=== PATIENT | male | born 1985 | race Caucasian/White ===

== ENCOUNTER 2023-09-15 00:34 | Observation (INO) | payer OTHER ==
--- NOTE | 2023-09-15 00:36 | ED ---
General Adult HPI - General Stated complaint: Sore throat Time Seen by Provider: 09/15/23 00:36 - History of Present Illness Initial comments: Collins is a 38-year-old male who presents to the emergency department today as a transfer from an outside facility. Patient reports he's had a sore throat for a few days he was seen in the emergency department yesterday morning and diagnosed with pharyngitis he was prescribed Augmentin and discharged home. He returned this evening with worsening pain and swelling, he was febrile tachycardic. Lab work showed he had leukocytosis and computed tomography scan of the neck showed a 2.2 cm hypodensity in the right tonsil concerning for abscess. Patient received a dose of Unasyn and Decadron at the outside hospital and transferred here for further evaluation. Of note there is also a lesion on the right tonsil concerning for reactive lymph node versus cancerous lesion given the patient's significant smoking history is recommended he have repeat imaging in 2-3 weeks. - Related Data Allergies Allergy/AdvReac Type Severity Reaction Status Date / Time No Known Allergies Allergy Verified 09/15/23 00:40 Review of Systems ROS Statement: Those systems with pertinent positive or pertinent negative responses have been documented in the HPI. ROS Other: All systems not noted in ROS Statement are negative. General Exam Limitations: no limitations General appearance: alert, other (Appears uncomfortable, m) Expanded Mouth exam: Present: trismus, muffled voice. Absent: drooling, tongue elevation Throat exam: R peritonsillar mass Respiratory exam: Absent: respiratory distress Cardiovascular Exam: Present: regular rate, normal rhythm GI/Abdominal exam: Absent: distended Neurological exam: Present: alert, oriented X3 Psychiatric exam: Present: normal affect, normal mood Skin exam: Present: warm, dry Course Vital Signs 09/15/23 09/15/23 09/15/23 00:36 02:10 03:00 Temperature 99.0 F Pulse Rate 97 88 90 Respiratory 20 16 15 Rate Blood Pressure 139/102 151/95 151/95 O2 Sat by Pulse 93 L 93 L 93 L Oximetry Procedures - Incision & Drainage Consent Obtained: verbal consent Site: oral (Peritonsillar abscess, right) Anesthetic Used: benzocaine 0.25% (Topical spray) Needle Aspiration Performed?: Yes Insertion of drain: No Culture Obtained?: No Patient Tolerated Procedure: well Medical Decision Making - Medical Decision Making Was pt. sent in by a medical professional or institution (, JORDI, INVESTIGATOR WELFARE, urgent care, hospital, or alf...) When possible be specific @ Yes - [facility] Did you speak to anyone other than the patient for history (EMS, parent, family, police, friend...)? What history was obtained from this source @ -Yes, transferring physician Did you review nursing and triage notes (agree or disagree)? Why? @ -I reviewed and agree with nursing and triage notes Were old charts reviewed (outside hosp., previous admission, EMS record, old EKG, old radiological studies, urgent care reports/EKG's, alf records)? Report findings @ -Tranfer packet reviewed Differential Diagnosis (chest pain, altered mental status, abdominal pain women, abdominal pain men, vaginal bleeding, weakness, fever, dyspnea, syncope, headache, dizziness, GI bleed, back pain, seizure, CVA, palpatations, mental health)? @ -not applicable EKG interpreted by me (3pts min.). @ -As above X-rays interpreted by me (1pt min.). @ -None done CT interpreted by me (1pt min.). @ -R peritonsillar abscess is visible U/S interpreted by me (1pt. min.). @ -None done What testing was considered but not performed or refused? (CT, X-rays, U/S, labs)? Why? @ -None What meds were considered but not given or refused? Why? @ -None Did you discuss the management of the patient with other professionals (professionals i.e. JORDI Auguste, INVESTIGATOR WELFARE, lab, RT, psych nurse, social sciences research scientist, tar leveler, teacher, branch officer, case folder)? Give summary @ -Dr Gardner Was smoking cessation discussed for >3mins.? @ -Yes Was critical care preformed (if so, how long)? @ -No Were there social determinants of health that impacted care today? How? (Homelessness, low income, unemployed, alcoholism, drug addiction, transportation, low edu. Level, literacy, decrease access to med. care, detention, rehab)? @ -No insurance therefore decreased access Was there de-escalation of care discussed even if they declined (Discuss DNR or withdrawal of care, Hospice)? DNR status @ -No What co-morbidities impacted this encounter? (DM, HTN, Smoking, COPD, CAD, Cancer, CVA, ARF, Chemo, Hep., AIDS, mental health diagnosis, sleep apnea, morbid obesity)? @ -Smoking Was patient admitted / discharged? Hospital course, mention meds given and route, prescriptions, significant lab abnormalities, going to OR and other pertinent info. @ -Admit She was seen and evaluated, history is obtained from the patient. Patient with a right peritonsillar abscess. Patient with fever tachycardia and leukocytosis in the setting of infection which meets criteria for sepsis patient received IV fluids and antibiotics prior to arrival. Patient verbally consented to peritonsillar abscess drainage. Attempt was made but significant drainage was not noted. Patient care was discussed with Dr. Gardner who agrees with plan for admission to medicine service with ENT on consult, antibiotics and Decadron. Undiagnosed new problem with uncertain prognosis? @ -No Drug Therapy requiring intensive monitoring for toxicity (Heparin, Nitro, Insulin, Cardizem)? @ -No Were any procedures done? @ -Yes Diagnosis/symptom? @ -Peritonsillar abscess Acute, or Chronic, or Acute on Chronic? @ -Acute Uncomplicated (without systemic symptoms) or Complicated (systemic symptoms)? @ -Complicated Side effects of treatment? @ -No Exacerbation, Progression, or Severe Exacerbation? @ -No Poses a threat to life or bodily function? How? (Chest pain, [place], [place], pneumonia, PE, COPD, DKA, ARF, appy, cholecystitis, CVA, Diverticulitis, Homicidal, Suicida l, threat to staff... and all critical care pts) @ - Yes causes sepsis Diagnosis/symptom? @ Sepsis Acute, or Chronic, or Acute on Chronic? @ -Acute Uncomplicated (without systemic symptoms) or Complicated (systemic symptoms)? @ -default Side effects of treatment? @ -none Exacerbation, Progression, or Severe Exacerbation] @ -no Poses a threat to life or bodily function? @ Yes Disposition Clinical Impression: Peritonsillar abscess Disposition: ADMITTED IP TO THIS HOSP Condition: Stable Is patient prescribed a controlled substance at d/c from ED?: No
[2023-09-15] MEDS ORDERED: BENZOCAINE SPRAY 1 CAN MUCOUS MEM STA (02:00)
[2023-09-15] MEDS ORDERED: DEXAMETHASONE SOD PHOSPHATE 10 MG/ML 1 ML VIAL IVP STA ×2 (02:45→13:41)
[2023-09-15] MEDS ORDERED: MORPHINE SULFATE 4 MG/ML SYRINGE IV PRN (02:59)
[2023-09-15] MEDS ORDERED: NALOXONE 0.4 MG/ML 1 ML VIAL IV PRN (02:59)
[2023-09-15] MEDS ORDERED: KETOROLAC 15 MG/ML 1 ML VIAL IVP PRN (02:59)
[2023-09-15] MEDS ORDERED: ONDANSETRON 4 MG/2 ML VIAL IVP PRN (02:59)
[2023-09-15] MEDS: CLINDAMYCIN 300 MG in DEXTROSE 5% IN WATER 50 ML IVPB SCH ×4 (03:00→12:57)
[2023-09-15] MEDS ORDERED: SODIUM CHLORIDE 0.9% 1,000 ML IV ONE (03:05)
[2023-09-15 03:46] VITALS: PULSE 90
[2023-09-15] MEDS: SODIUM CHLORIDE 0.9% 1,000 ML IV SCH ×2 (05:00→12:06)
--- NOTE | 2023-09-15 06:48 | P.HPIM ---
History of Present Illness H&P Date: 09/15/23 Chief Complaint: Peritonsillar abscess 38-year-old male with no significant past medical history Patient coming in as a transfer from another facility after diagnosis of peritonsillar abscess Patient has been having sore throat and difficulty swallowing over the past couple days, yesterday morning he was diagnosed with sick pharyngitis and discharged from ER of a different facility with Augmentin. However due to worsening of his symptoms with more difficulty swallowing and then noticing that his uvula is swollen he decided to go back to the same facility for evaluation patient does recall history of swollen uvula 9 years ago he doesn't remember what was causing it Patient also describes symptoms of fever over the past few days with changes in his speech becoming more muffled he denies any difficulty breathing but does have difficulty swallowing with odynophagia. He goes back to the ED for evaluation this time CAT scan was done and showed peritonsillar abscess on the right side with some reactive lymph nodes. Patient does have strong history of smoking but otherwise denies any injuries or dental abscesses recently however he does have poor dental hygiene. Patient does report fevers and chills he denies any upper respiratory infection symptoms otherwise he denies any chest pain trouble breathing abdominal pain nausea vomiting changes in bowel or urinary habits Patient was sent in to our hospital for ENT evaluation review of systems Pertinent positives as noted in HPI. All other systems were reviewed and are negative on exam Constitutional: No acute distress, muffled speech Eyes: Anicteric sclerae, moist conjunctiva, Pupils equal round reactive to light ENMT: NC/AT Oropharynx clear, uvula edema with right peritonsillar swelling and shifting of the soft palate medially, no drooling patient able to manage his saliva Neck: Supple, no masses, or JVD Lungs: Good breath sounds bilaterally with scattered rhonchi Clear to percussion Normal respiratory effort, no accessory muscle use Cardiovascular: Heart regular in rate and rhythm, No murmurs, gallops, or rubs No peripheral edema Abdominal: Soft Nontender, no guarding, rebound or rigidity Abdomen moving with respiration Normoactive bowel sounds No hepatomegaly, No splenomegaly No palpable mass No abdominal wall hernia noted Extremities: No digital cyanosis No clubbing Pedal pulses intact and symmetrical Radial pulses intact and symmetrical No calf tenderness Psychiatric: Alert and oriented to person, place and time Appropriate affect fair judgement Neuro Muscles Strength 5/5 in all 4 extremities Sensation to light touch grossly present throughout Cranial nerves II-XII grossly intact Lymphatics: no palpable cervical or supraclavicular lymph nodes Past Medical History Past Medical History: No Reported History History of Any Multi-Drug Resistant Organisms: None Reported Past Surgical History: No Surgical Hx Reported Past Psychological History: No Psychological Hx Reported Smoking Status: Current every day smoker Past Alcohol Use History: Occasional Past Drug Use History: None Reported Medications and Allergies Allergies Allergy/AdvReac Type Severity Reaction Status Date / Time No Known Allergies Allergy Verified 09/15/23 00:40 Physical Exam Vitals: Vital Signs Temp Pulse Resp BP Pulse Ox 09/15/23 03:00 90 15 151/95 93 L 09/15/23 02:10 88 16 151/95 93 L 09/15/23 00:36 99.0 F 97 20 139/102 93 L Intake and Output 09/14/23 09/14/23 09/15/23 14:59 22:59 06:59 Intake Total 650 Balance 650 Intake: Intake, IV Titration 650 Amount Clindamycin 300 mg In 50 Dextrose 5% in Water 50 ml @ 50 mls/hr IVPB Q8H HEIDI Rx#:[id number] Sodium Chloride 0.9% 1, 600 000 ml @ 150 mls/hr IV . Q6H40M HEIDI Rx#:[id number] Other: # Voids 1 Weight 92.986 kg Assessment and Plan Assessment: 38-year-old male no significant past medical history coming in as a transfer from a different facility after diagnosis of right peritonsillar abscess for ENT evaluation I discussed the case with the ED doctor and accepted the admission for right peritonsillar abscess with sepsis awaiting ENT evaluation with anticipated length stay more than 2 midnights Sepsis secondary to right peritonsillar abscess Nothing by mouth IV fluid hydration normal saline Follow-up cultures Initiated on clindamycin and Unasyn Await ENT evaluation Pain control with morphine when necessary as needed Blood work from the other facility showed white count of 18.2 Lactic acid negative Strep throat was negative [place] test was negative CRP elevated 8.9 Hemoglobin unremarkable 14.4 Creatinine 0.8 BUN 13 unremarkable Electrolytes unremarkable Full code DVT prophylaxis heparin subcu 3 times a [id number] units
[2023-09-15] MEDS ORDERED: AMPICILLIN-SULBACTAM 3 GM in SODIUM CHLORIDE 0.9% 50 ML IVPB SCH ×2 (09:00→12:00)
[2023-09-15 09:57] VITALS: BP 120/84; RESP 14; TEMP 98.2
[2023-09-15] MEDS ORDERED: AMPICILLIN-SULBACTAM 3 GM in SODIUM CHLORIDE 0.9% 100 ML IVPB SCH (12:00)
--- NOTE | 2023-09-15 15:28 | P.DS ---
Providers Date of admission: 09/15/23 02:59 Expected date of discharge: 09/15/23 Attending physician: Madan Lnudberg MD Consults: 09/15/23 02:59 Consult Physician Urgent Consulting Provider: Irineo Gardner Consult Reason/Comments: [employer]SEM[employer] Do you want consulting provider notified?: Already Contacted Primary care physician: Stated None Hospital Course: Discharge Diagnosis: Peritonsillar abscess Multiple nodular abnormalities seen on the CT imaging, patient will require repeat CT to ensure resolution of these findings after treatment course is completed. Nicotine dependence, recommend smoking cessation Hospital Course: Patient is a pleasant 38-year-old male with a past medical history of nicotine dependence. He presented to our facility overnight as a transfer from outside facility for evaluation of Peritonsillar abscess. Patient underwent computed tomography scan of neck revealing right palatine tonsil with intraoperative tonsillar hypodensity measuring up to 2.2 cm along with multiple focal densities possibly representing nodules versus reactive lymph nodes, patient will require follow-up imaging in 2-3 weeks to ensure resolution once treatment course has been completed patient was admitted under our services with consultation to ENT. He received Decadron 10 mg IVP and started on IV antibiotics with. Unasyn and clindamycin. Patient was evaluated by ENT and cleared for outpatient follow-up. ENT stating no need for incision and drainage, recommend patient discharge and follow-up and complete entire course of Augmentin 875/125 mg tablets as previously prescribed. Patient to follow up outpatient with PCP for repeat imaging once antibiotic course is completed and with ENT as needed. Patient medically stable for discharge at this time. Physical exam: Patient seen and examined at bedside. Vital signs reviewed and stable. General: Nontoxic, no distress and appears stated age. Derm: Skin warm and dry, normal coloration for ethnicity. Head: Atraumatic, normocephalic and symmetric. Eyes: EOMs intact, no lid lag, and anicteric sclera Mouth: no lip lesions, mucus membranes moist. Patient with moderate erythema and swelling to right tonsil consistent with peritonsillar abscess Cardiovascular: regular rate and rhythm with normal S1S2, no murmur, positive posterior tibial pulses bilaterally, and cap refill < 2 seconds. Lungs: Respirations even, regular, and unlabored on room air. Lungs CTA bilaterally, no rhonchi, no rales, no wheezing, and no accessory muscle usage. Abdominal: soft, nontender to palpation, no guarding, no appreciable organomegaly Ext: ROM intact. No gross muscle atrophy, no edema, no contractures Neuro: Speech clear, face symmetrical and CN II-XII grossly intact with no noted focal neuro deficits Psych: Alert and oriented to person, place, time, and situation. Appropriate and pleasant affect. A total of 31 minutes of time were spent preparing this complex discharge summary. Pt was discharged on 09/15/23 at 3:25 PM. Patient was seen independently by Nurse Practitioner. This document was prepared using [employer] dictation software. Please allow for errors in station engineer while rare they do occur. Brannon Zelaya NP rendered care for this patient independently, reviewed the findings and plan as documented in the note above. I did not physically speak with or examine the patient on this date. Patient Condition at Discharge: Stable Plan - Discharge Summary Discharge Rx Participant: No New Discharge Prescriptions: Continue Ibuprofen [Motrin] 800 mg PO Q8H PRN PRN Reason: Pain Amoxic-Pot Clav 875-125Mg [Augmentin 875-125] 1 tab PO Q12HR Discharge Medication List Amoxic-Pot Clav 875-125Mg [Augmentin 875-125] 1 tab PO Q12HR 09/15/23 [History] Ibuprofen [Motrin] 800 mg PO Q8H PRN 09/15/23 [History] Follow up Appointment(s)/Referral(s): Sundar Jenkins MD [REFERRING] - 1 Week Irineo Gardner MD [STAFF PHYSICIAN] - As Needed Patient Instructions/Handouts: Peritonsillar Abscess (DC) Activity/Diet/Wound Care/Special Instructions: Activity: As tolerated. Take breaks as needed. Diet: Soft foods, advance as tolerated Special Instructions: Please be sure to complete entire course of antibiotics with Augmentin previously prescribed and remember to keep all of your doctor's appointments and follow-up as needed. You will need follow-up CT secondary to multiple nodular abnormalities seen on CT, possibly infectious however need repeat CT to ensure resolution of these findings Thank you for allowing us to participate in your care, it was truly a pleasure having you for our patient!!! Discharge Disposition: HOME SELF-CARE
--- NOTE | 2023-09-15 19:25 | CONS ---
CONSULTATION REASON FOR CONSULTATION: Right peritonsillar abscess. HISTORY OF PRESENT ILLNESS: The patient is a pleasant 38-year-old male, who presented at [facility] in the early a.m. The patient states that 3 or 4 days prior, he had experienced an increasingly severe right-sided sore throat. He subsequently went to [facility]. He was seen by a physician in the emergency room. He was subsequently examined and given a prescription for Augmentin 875 mg tablets plus Motrin 800 mg tablets and discharged home. He subsequently felt that he was getting worse and he returned to [facility]. At that time, he was once again seen by the physician, and this time, he was given intravenous Unasyn, IV antibiotic, plus a steroid (methylprednisolone). The emergency room physician contacted [facility] physician and requested that the patient be transferred because [place] did not have ENT Services available and the emergency room physician was not familiar with the procedure of aspirating a peritonsillar abscess. Therefore, the patient was transferred. I was called at approximately 02:33 a.m., by [facility] PA. The case was discussed with me, and at that time, I was advised that a CT scan done at [place] had suggested a possible right peritonsillar abscess. In addition to this, there was some possible abnormality of the right fossa of Rosenmller. However, the CT scan also suggested possible phlegmon. I advised the PA in the emergency room to make sure that the patient has had a dose of Unasyn, and if he has, I would also give him a dose of dexamethasone IV 10 mg. I also requested that the patient be admitted to the hospital and placed on Unasyn 3 g IV daily and also Cleocin 300 mg IV q.8 hours. He was to be given a regular diet. I saw the patient later in the afternoon of 09/15/2023, after his admission, and at that time he stated that he felt markedly improved. He felt the swelling had decreased significantly in the back of his throat. In addition to this, the patient states that he used to smoke 2 packs of cigarettes per day, but he was down to one-half a pack and was intent on quitting completely. I encouraged him to stop smoking. I discussed the patient's x-rays finding with him with regard to the possible right peritonsillar abscess versus phlegmon and also the suspicious area around the right fossa of Rosenmller. My feeling is that most likely the findings on the x-ray do not represent any type of lesion, but it is that most likely represents just an extension of the right peritonsillar abscess, inflammation, and cellulitis process. PAST MEDICAL HISTORY: Reveals the patient has no known allergies to medications. His only current medication is that which was prescribed by the [facility], namely, Augmentin 875 mg p.o. b.i.d., #20 tablets and also Motrin 800 mg tablets p.o. t.i.d. p.r.n. for pain. The patient states that he had a similar problem with a peritonsillar abscess approximately 8 or 9 years ago. He does not have a history of having recurrent sore throats or recurrent tonsillitis. REVIEW OF SYSTEMS: Noncontributory. PHYSICAL EXAMINATION: GENERAL: This patient is a 38-year-old male, who is alert and cooperative and is in no acute distress at this time. HEENT: The patient is normocephalic. Tympanic membranes are normal. Middle ear spaces are free of any fluid or infection. Pupils are equal, round, and reactive to light and accommodation. Extraocular movements are within normal limits. Intranasal examination reveals [id number] septal deviation with compensatory hypertrophy of inferior turbinates. Examination of oropharynx reveals moderate soft tissue swelling in the right peritonsillar area. The area is mildly tender to deep palpation with a wooden tongue blade. The left peritonsillar area is completely unremarkable. Posterior pharyngeal wall is slightly injected, but not severely so. Palpation of the neck is negative for any palpable neck masses or lymphadenopathy. Cranial nerves 2 through 12 and remainder of the head and neck exam are unremarkable. CHEST/CARDIOVASCULAR: Both lung pacheco are clear to percussion and auscultation. The patient is in regular sinus rhythm. S1 and S2 are present without any murmurs. It is to be noted that the lung sounds are somewhat distant at the bases suggesting possible early pulmonary disease such as COPD/emphysema, etc. ABDOMEN: There is no evidence any masses, megaly, or tenderness. The abdomen is soft. SKIN: Unremarkable. Remainder of the physical exam is unremarkable. ASSESSMENT: Right peritonsillar abscess/peritonsillar cellulitis. PLAN: I feel that this patient is okay to be discharged home today after he completes his Unasyn and his latest dose of Cleocin intravenously. In addition to this, I will have the nursing staff give the patient 10 mg of Decadron intravenously before he goes home. I have advised the patient to follow up with his family physician, who certainly can consider possibly repeating the CT scan of the neck with contrast if there is any concern with respect to the status of the nasopharynx and the possibility of any lesion being there. I would not need to see this patient on followup. I want to take this opportunity to thank you for allowing me to assist in the care of your patient. If I can be of any further assistance, please feel free to call my office. ESTEPHANIE / GEOFFN: [id number] / MTDD
== END 2023-09-15 15:40 | disposition home or self-care (01) ==
LOC: EC 00:34 → 6NMEDSUR 02:59 → 2SICU 10:36
PROVIDERS: ADMIT Internal Medicine; ATTEND Internal Medicine
DX: A41.9 Sepsis, unspecified organism (principal); J36 Peritonsillar abscess; R59.1 Generalized enlarged lymph nodes; R79.82 Elevated C-reactive protein (CRP); F17.210 Nicotine dependence, cigarettes, uncomplicated; Z71.6 Tobacco abuse counseling
CPT/HCPCS: 42700 ×2; 96376; 96365; 96366; 96375; 99285; 87040; 87077; 87186; G0378 ×2; J1100; J0295; J0736